=== PATIENT | female | born 1955 | race Caucasian/White ===

== ENCOUNTER 2016-11-30 04:24 | Emergency (ER) | payer BC ==
[2016-11-30 09:08] LABS: HEMOGLOBIN 10.4 gm/dl (12.3-15.3); RED BLOOD COUNT 3.78 M/UL (4.00-5.10); WHITE BLOOD COUNT 5.5 K/UL (4.5-11.0)
[2016-11-30 09:29] LABS: BUN/CREATININE RATIO 24 (0-10)
== END 2016-11-30 10:50 | disposition home or self-care (01) ==
LOC: ER1 04:24
PROVIDERS: Family Medicine
DX: H81.399 Other peripheral vertigo, unspecified ear (principal); R11.0 Nausea; Z88.5 Allergy status to narcotic agent; Z79.899 Other long term (current) drug therapy
CPT/HCPCS: 36415; 70450; 80053; 82550; 82553; 83874; 84484; 85025; 93005; 96374; 99284; J2405; J7040